=== PATIENT | female | born 1995 ===

== ENCOUNTER 2020-09-27 19:39 | Emergency (ER) | payer MEDICAID, OTHER ==
[~2020-09-27] VITALS: Ht 177.8 cm; Wt 102.0 kg
[~2020-09-27 19:39] MED LIST: DOCU-131 PO; IBUP-1222 PO
--- NOTE | 2020-09-27 19:54 | NUR ---
C/O SICK WITH COLD X1 WEEK, +CHILLS, BODY ACHES, AND SORE THROAT.
--- NOTE | 2020-09-27 19:57 | NUR ---
DR. OSBORNE AT BEDSIDE FOR EVAL.
[2020-09-27] MEDS ORDERED: SODIUM CHLORIDE 0.9% 1,000ML IVBOLUS ONE ×2 (20:00→22:30)
[2020-09-27] MEDS ORDERED: SODIUM CHLORIDE FLUSH 10ML SYR IVF ONE (20:00)
[2020-09-27 20:47] LABS: BASOPHILS % (AUTO) 0 % (0-1); EOSINOPHILS % (AUTO) 0 % (1-7); LYMPHOCYTES % (AUTO) 20 % (22-44); MEAN CORPUSCULAR HEMOGLOBIN 30.4 pg (27.0-34.8); MEAN PLATELET VOLUME 8.7 fL (7.4-10.4); MONOCYTES % (AUTO) 10 % (2-9); NEUTROPHILS % (AUTO) 69 % (42-75); PLATELET COUNT 195 x10^3/uL (130-400); RED BLOOD COUNT 4.34 x10^6/uL (3.82-5.3); RED CELL DISTRIBUTION WIDTH 13.4 % (9.6-15.2)
[2020-09-27 20:58] LABS: ALANINE AMINOTRANSFERASE 78 U/L (12-78); ALBUMIN 3.3 g/dL (3.4-5.0); ANION GAP 7 mmol/L (5-15); C-REACTIVE PROTEIN, QUANT 0.55 mg/dL (0.02-0.49); CALCIUM 8.1 mg/dL (8.5-10.1); CHLORIDE 109 mmol/L (98-107); CREATININE 0.65 mg/dL (0.55-1.02)
[2020-09-27] MEDS ORDERED: CEFTRIAXONE 1,000 MG in DEXTROSE 5% 50 ML IVPB ONE (21:00)
[2020-09-27] MEDS ORDERED: AZITHROMYCIN 500 MG in SODIUM CHLORIDE 0.9% 250 ML IV ONE (21:00)
[2020-09-27] MEDS ORDERED: ALBUTEROL SULFATE 2.5MG/0.5ML NPPB ONE (21:00)
[2020-09-27 21:02] LABS: ALKALINE PHOSPHATASE 97 U/L (45-117); BILIRUBIN,TOTAL 0.6 mg/dL (0.2-1.0)
[2020-09-27] MEDS ORDERED: ALBUTEROL SULFATE 2.5 MG/3 ML ONE (21:13)
[2020-09-27] MEDS ORDERED: ALBUTEROL SULFATE 2.5MG/0.5ML ONE (21:14)
--- NOTE | 2020-09-27 21:36 | NUR ---
RT AT BEDSIDE FOR BREATHING TREATMENT.
--- NOTE | 2020-09-27 21:57 | NUR ---
IV ABX INFUSING. VSS.
--- NOTE | 2020-09-27 23:03 | NUR ---
REPORT TO YAN AVALOS.
[2020-09-28 00:23] VITALS: BP 107/77
--- NOTE | 2020-09-28 00:38 | NUR ---
PT D/C WITH D/C SUMMARY AND SCRIPTS. ALL QUESTIONS ANSWERED. PT PIV DC WITH TIP INTACT. PT AMBULATES TO REGISTRATION DESK WITH STEADY GAIT FOR D/C HOME AND DENIES ANY OTHER NEEDS PERTAINING TO THIS VISIT. PT VSS AND UPDATED IN EMR.
== END 2020-09-28 00:43 | disposition home or self-care (01) ==
LOC: ED 19:50
DX: J15.9 Unspecified bacterial pneumonia (principal); Z20.822 Contact with and (suspected) exposure to COVID-19
CPT/HCPCS: 36415; 71045; 80053; 82728; 83605; 83615; 84145; 85025; 86140; 87040; 93005; 94640; 96361; 96365; 96367; 99285; J0456; J0696; J7030; J7050; U0003; U0005